=== PATIENT | male | born 1945 | race Caucasian/White ===

== ENCOUNTER → 2024-07-07 11:29 | Outpatient (CLI) | payer MEDICARE, SELFPAY ==
--- NOTE | 2024-07-07 11:30 | DI.RAD.S_ITS ---
PROCEDURE: XR KNEE LT 3V INDICATIONS: left KNEE PAIN TECHNIQUE: 3 views of the knee were acquired. COMPARISON: None. FINDINGS: Bones: Patient is status post prior left total knee arthroplasty. Left knee alignment is anatomic. No fractures or dislocations. No gross hardware loosening or failure. No patellar subluxation. No suspicious bony lesions. Soft tissues: Small suprapatellar joint effusion. No suspicious soft tissue calcifications. IMPRESSION: Prior left total knee arthroplasty. Anatomic left knee alignment. No acute fracture or dislocation. No gross hardware loosening or failure. Small joint effusion. Dictated by: Noble Kim M.D. on 07/07/2024 at 12:17 Approved by: Noble Kim M.D. on 07/07/2024 at 12:18
--- NOTE | 2024-07-07 11:30 | DI.RAD.S_ITS ---
PROCEDURE: XR LUMBAR SPINE MIN 4V INDICATIONS: BACK PAIN TECHNIQUE: 5 views of the lumbar spine were acquired, including bilateral oblique views. COMPARISON: None. FINDINGS: Bones: 5 nonrib-bearing vertebrae are present. There is 7 mm anterolisthesis of L4 on L5. Degenerative endplate changes, loss of disc height and bilateral facet arthrosis throughout lumbar spine is seen.. No vertebral body compression fractures. No suspicious bony lesions. Soft tissues: Overlying bowel gas pattern is normal. No suspicious soft tissue calcifications. Oblique images: No pars defects. 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 IMPRESSION: 1. Grade 1 anterolisthesis of L4 on L5. No acute compression fracture. 2. 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 No gross pars defects. Suggestion of bilateral bony foraminal stenosis at L4-5 and L5-S1 levels. Dictated by: Noble Kim M.D. on 07/07/2024 at 12:18 Approved by: Noble Kim M.D. on 07/07/2024 at 12:19
== END ==
PROVIDERS: PCP Family Medicine; Referring Provider Physical Medicine & Rehabilitation; Visit Provider Physical Medicine & Rehabilitation
DX: M43.16 Spondylolisthesis, lumbar region (principal); M48.062 Spinal stenosis, lumbar region with neurogenic claudication; M47.816 Spondylosis without myelopathy or radiculopathy, lumbar region; M51.369 Other intervertebral disc degeneration, lumbar region without mention of lumbar back pain or lower extremity pain; M25.562 Pain in left knee; M25.561 Pain in right knee; M25.462 Effusion, left knee; M16.12 Unilateral primary osteoarthritis, left hip; I48.91 Unspecified atrial fibrillation; M54.9 Dorsalgia, unspecified; Z96.652 Presence of left artificial knee joint; Z98.890 Other specified postprocedural states
CPT/HCPCS: 20611; 72110; 73562; 99215; J0702